=== PATIENT | male | born 1950 | race Caucasian/White ===

== ENCOUNTER 2020-06-01 07:36 | Outpatient (CLI) | payer MEDICARE, SELFPAY ==
--- NOTE | ~2020-06-01 | CT_ITS ---
EXAMINATION: CT abdomen w con DATE: 06/01/2020 08:37 INDICATION: Uveal melanoma. TECHNIQUE: Computed tomography (CT) of the abdomen was performed with 100 mL Omnipaque 350 intravenou s contrast. The dose-length product was 790.40 mGy-cm. COMPARISON: Chest CT 01/11/2016 FINDINGS: The visualized portions of the lung bases demonstrate minimal atelectasis on the right. No pleural effusion. Cardiomegaly is noted. No pericardial effusion. There is a small sliding hiatal her robert. There is a 5.4 cm low-attenuation mass in segment VII of the liver with interrupted peripheral p uddling of contrast, consistent with a hemangioma. There are 8 hypodense lesions in the liver measuri ng up to 10 mm. The liver is not well evaluated on the prior chest CT due to the pulmonary arterial p hase of contrast. There are gallstones in the gallbladder, which is normal in size. Calcifications in the spleen are consistent with old granulomatous disease. The pancreas is normal. There are masses i n the adrenal glands measuring up to 1.6 cm on the left measuring soft tissue attenuation without shawanda nge from 01/11/16, consistent with adenomas. There is a 2.4 cm cyst in right kidney. Left kidney is no rmal. There are changes of right hemicolectomy. There are 2 supraumbilical ventral hernias containing fat. There are no pathologically enlarged lymph nodes. There is no free intraperitoneal fluid. There is a chronic compression fracture of T10. There are bridging endplate osteophytes at multiple levels in the spine, consistent with diffuse idiopathic skeletal hyperostosis (DISH). There is mild thoraco lumbar spondylosis. IMPRESSION: 1. Eight liver masses measuring up to 10 mm. These findings are most likely cysts, but metastatic dis ease cannot be excluded. Abdomen MRI without and with contrast is recommended. Reviewed, dictated and finalized at location A. IMPRESSION: 1. Eight liver masses measuring up to 10 mm. These findings are most likely cys ts, but metastatic disease cannot be excluded. Abdomen MRI without and with con trast is recommended.
[2020-06-01 08:26] LABS: Estimated Glomerular Filt Rate > 60
== END 2020-06-01 07:37 | disposition home or self-care (01) ==
PROVIDERS: PCP Family Medicine; Visit Provider Radiology Radiation Oncology
DX: C69.31 Malignant neoplasm of right choroid (principal); R16.0 Hepatomegaly, not elsewhere classified
CPT/HCPCS: 36415; 74160; Q9967

== ENCOUNTER 2020-06-09 06:37 | Outpatient (CLI) | payer MEDICARE, SELFPAY ==
--- NOTE | ~2020-06-09 | MR_ITS ---
EXAMINATION: MR abdomen wo/w con DATE: 06/09/2020 08:09 INDICATION: Lesion of liver. Malignant melanoma of the eye. TECHNIQUE: Magnetic resonance imaging (MRI) of the abdomen was performed without and with 20 mL Multi manny intravenous contrast. Sequences included coronal T2-weighted SS-FSE, coronal and axial FS 2D-F IESTA, axial STIR FSE, axial T2-weighted SS-FSE, axial T2-weighted FS SS-FSE, axial diffusion-weighte d SE, axial dual-echo T1-weighted FSPGR, and axial and coronal T1-weighted LAVA. Postcontrast axial T 1-weighted LAVA images were obtained in a time course. Postcontrast coronal T1-weighted LAVA images w ere obtained. COMPARISON: CT dated 06/01/2020 FINDINGS: Heart size is normal. No pericardial or pleural effusion. There are several small enhancing gallbladd er polyps the largest 2 measuring up to 6 mm in maximal diameter. Small splenule along the anteroinfe rior margin of the normal spleen. Pancreas and bilateral adrenal glands are normal. T2 hyperintense n onenhancing bilateral renal cysts measuring 2.5 cm on the right and 5 mm on the left. 4.8 x 2.9 cm T2 hyperintense cavernous hemangioma in segment 7 of the liver with peripheral discontig uous puddling of contrast isodense to aorta which fills in on delayed imaging. Slightly posterior and medial from the cavernous hemangiomas a second 8 mm flash filling hemangioma which demonstrates avid arterial enhancement which persists throughout the 5 and 10 minute delayed imaging. There are multip le T2 hyperintense nonenhancing cysts scattered throughout the liver. There are 2 small peripheral we dge-shaped regions of subtle enhancement in the arterial phase which equalizes to the surrounding hep atic parenchyma on the remaining sequences and without evident correlate on any of the precontrast se quences most consistent with transient hepatic intensity difference. Finally there is a 6 mm arterial ly enhancing lesion at the junctions of segments 4A and 4B of the liver which does not appear to cont act the liver capsule but which is also indiscernible on the noncontrast and more delayed postcontras t images is isodense to the surrounding hepatic parenchyma. No other hepatic lesions identified. Spec ifically no lesions demonstrating washout on more delayed postcontrast images. IMPRESSION: 1. Multiple hepatic lesions, 2 of which including the largest 4.9 cm lesion in the right hepatic lobe are consistent with hemangiomas, the majority are consistent with hepatic cysts, 2 with appearance f avoring transient hepatic intensity difference and finally a single 6 mm arterially enhancing lesion at the junction of segments 4A and 4B which remains indeterminate with differential including flash f illing hemangioma, transient hepatic intensity difference or neoplasm either benign or malignant. No evident washout to more specifically suggest malignancy/metastatic disease. Given the small size of t he lesion but also in the setting of known primary malignancy would recommend 3-6 month follow-up con trast-enhanced MRI. Reviewed, dictated and finalized at location A. IMPRESSION: 1. Multiple hepatic lesions, 2 of which including the largest 4.9 cm lesion in the right hepatic lobe are consistent with hemangiomas, the majority are consis tent with hepatic cysts, 2 with appearance favoring transient hepatic intensity difference and finally a single 6 mm arterially enhancing lesion at the juncti on of segments 4A and 4B which remains indeterminate with differential includin g flash filling hemangioma, transient hepatic intensity difference or neoplasm either benign or malignant. No evident washout to more specifically suggest mal ignancy/metastatic disease. Given the small size of the lesion but also in the setting of known primary malignancy would everette
== END 2020-06-09 06:38 | disposition home or self-care (01) ==
LOC: ANHIMG 06:39
PROVIDERS: PCP Family Medicine; Visit Provider Radiology Radiation Oncology
DX: C69.90 Malignant neoplasm of unspecified site of unspecified eye (principal); K76.9 Liver disease, unspecified
CPT/HCPCS: 74183; A9577

== ENCOUNTER 2020-08-24 08:45 | Outpatient (CLI) | payer MEDICARE, SELFPAY ==
--- NOTE | ~2020-08-24 | MR_ITS ---
EXAMINATION: MR abdomen wo/w con DATE: 08/24/2020 10:06 INDICATION: Liver mass. Malignant neoplasm of right choroid. TECHNIQUE: Magnetic resonance imaging (MRI) of the brain and brainstem was performed without and with 20 mL MultiHance intravenous contrast. Sequences included coronal T2-weighted FS FSE, coronal and ax ial FS FIESTA, axial T2-weighted FSE, coronal LAVA-flex, axial STIR FSE, axial DWI, axial dual-echo T 1-weighted FSPGR, and axial LAVA. Postcontrast sequences included coronal LAVA-flex and a time course of axial LAVA. COMPARISON: Abdomen MRI 06/09/2020, CT 06/01/2020, chest CT 01/11/2016 FINDINGS: Left hepatic lobe is small. A 4.8 cm mass in right hepatic lobe demonstrates interrupted pe ripheral puddling of contrast, consistent with a hemangioma. There are cysts in the liver measuring u p to 9 mm. There is a wedge-shaped area of arterial enhancement in right hepatic lobe, consistent wit h transient hepatic intensity difference. There is an 8 mm arterial enhancing mass in segment VIII. T here is a 13 mm arterial enhancing mass in segment VII. There are two 8 mm enhancing lesions in segme nt V. There are polyps in the gallbladder measuring up to 6 mm. The spleen is normal. There is a 12 x 5 mm cystic lesion in the head of the pancreas. There are masses in the adrenal glands measuring up to 16 mm on the left containing microscopic fat, consistent with adenomas. There are cysts in the kid neys measuring up to 2.7 cm on the right. There are no pathologically enlarged lymph nodes. There is no free intraperitoneal fluid. IMPRESSION: 1. Four enhancing liver masses measuring up to 13 mm, stable from 06/09/2020, most likely benign. Edmonson static disease cannot be excluded. Consider abdomen MRI without and with contrast in 6 months. 2. Gallbladder polyps measuring up to 6 mm, most likely benign. Metastatic disease cannot be excluded . Reviewed, dictated and finalized at location A. IMPRESSION: 1. Four enhancing liver masses measuring up to 13 mm, stable from 06/09/2020, mo st likely benign. Metastatic disease cannot be excluded. Consider abdomen MRI w ithout and with contrast in 6 months. 2. Gallbladder polyps measuring up to 6 mm, most likely benign. Metastatic dise ase cannot be excluded.
[2020-08-24 09:28] LABS: Estimated Glomerular Filt Rate > 60
== END 2020-08-24 08:46 | disposition home or self-care (01) ==
LOC: ANHIMG 08:47
PROVIDERS: PCP Family Medicine; Visit Provider Radiology Radiation Oncology
DX: C69.31 Malignant neoplasm of right choroid (principal)
CPT/HCPCS: 74183; A9577

== ENCOUNTER 2021-02-09 08:43 | Outpatient (CLI) | payer MEDICARE, SELFPAY ==
--- NOTE | ~2021-02-09 | MR_ITS ---
EXAMINATION: MR abdomen wo/w con DATE: 02/09/2021 10:07 INDICATION: Liver mass. Melanoma of right choroid. TECHNIQUE: Magnetic resonance imaging (MRI) of the abdomen was performed without and with 20 mL Multi [place] intravenous contrast. Sequences included coronal T2-weighted FS FSE, coronal and axial FS FIEST A, axial T2-weighted FSE, coronal LAVA-flex, axial STIR FSE, axial DWI, axial dual-echo T1-weighted F SPGR, and axial LAVA. Postcontrast sequences included coronal LAVA-flex and a time course of axial LA VA. COMPARISON: Abdomen MRI 08/24/2020, 06/09/20, CT abdomen 06/01/2020 FINDINGS: In the right hepatic lobe, there is a 5.0 cm mass with interrupted peripheral puddling of contrast, c onsistent with a hemangioma. There are cysts in the liver measuring up to 9 mm. There are multiple ar terial enhancing lesions in the liver measuring up to 16 mm, stable from 06/09/2020, likely benign. Th ere are polyps in the gallbladder measuring up to 6 mm, stable from 06/09/20, likely benign. The splee n and pancreas are normal. There are masses in the adrenal glands measuring up to 13 mm on the left c ontaining microscopic fat, consistent with adenomas. There is a 2.7 cm cyst in right kidney. Left kid dean is normal. There are no pathologically enlarged lymph nodes. There is no free intraperitoneal flu id. There are no dilated loops of bowel. IMPRESSION: 1. No specific evidence of metastatic disease. Reviewed, dictated and finalized at location A.
[2021-02-09 09:27] LABS: Estimated Glomerular Filt Rate > 60
== END 2021-02-09 08:44 | disposition home or self-care (01) ==
PROVIDERS: PCP Family Medicine; Visit Provider Radiology Radiation Oncology
DX: C69.31 Malignant neoplasm of right choroid (principal); R93.2 Abnormal findings on diagnostic imaging of liver and biliary tract
CPT/HCPCS: 74183; A9577

== ENCOUNTER → 2021-10-02 15:00 | Outpatient (CLI) | payer MEDICARE, SELFPAY ==
--- NOTE | ~2021-10-02 | MR_ITS ---
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 The heart size is normal. There is a stable 5 cm hemangioma of th e right hepatic lobe. Cysts of the liver measure up to 9 mm. There are multiple stable arterially enh ancing lesions of the liver, likely benign. No new enhancing liver mass is identified. The spleen and pancreas are normal. Stable polyps of the gallbladder measure up to 6 mm. Stable left adrenal masses measuring up to 13 mm and are consistent with adenomas. There are no pathologically enlarged abdomin al lymph nodes. Cysts of the kidneys measure up to 2.9 cm on the right. There are no dilated loops of bowel. IMPRESSION: 1. No evidence of metastatic disease. Reviewed, dictated and finalized at location B. PING AND RECEIVING COORDINATOR
--- NOTE | ~2021-10-02 | XR_ITS ---
EXAMINATION: XR chest 2V 10/02/2021 16:25 INDICATION: Ocular melanoma. PROCEDURE: 2 view chest COMPARISON: Comparison to multiple prior studies sequentially, with oldest reviewed study dated 07/25. FINDINGS: The lungs are clear. The cardiomediastinal silhouette is within normal limits. There are no pleural effusions. There is no pneumothorax suspected. There is mild wedge compression deformity of the lower thoracic vertebra. IMPRESSION: 1: NO ACUTE CARDIOPULMONARY DISEASE. Reviewed, dictated and finalized at location A. BURSEMENT DIRECTOR
[2021-10-02 15:50] LABS: Estimated Glomerular Filt Rate > 60
== END ==
PROVIDERS: PCP Family Medicine
DX: R93.2 Abnormal findings on diagnostic imaging of liver and biliary tract (principal)
CPT/HCPCS: 71046; 74183; A9577

== ENCOUNTER 2022-01-04 00:07 | Day surgery (SDC) | payer MEDICARE, SELFPAY ==
[2021-12-26 14:43] VITALS: BMI 34.4
[2022-01-04 09:02] VITALS: BP 166/73; PULSE 77; RESP 18; TEMP 36.3; O2SAT 95
[2022-01-04] MEDS: LACTATED RINGERS 1,000 ML 150 ML IV CONT (09:13)
--- NOTE | 2022-01-04 09:41 | WPDGICN ---
Assessment and Plan Assessment and plan (1) Family history of colon cancer in mother: Code(s): Z80.0 - Family history of malignant neoplasm of digestive organs Status: Acute Assessment and Plan: Patient's mother had colon cancer this reason along with personal history of colon polyps and noted. Plan is for follow-up colonoscopy at 5 year intervals. (2) History of colon polyps: Code(s): Z86.010 - Personal history of colonic polyps Status: Acute Assessment and Plan: Patient had a large polyp requiring surgical resection in 2009. Plan is for surveillance colonoscopy at this time. GI Consult Note Consult date/time: 01/04/22 09:41 HPI: Jaciel Silvestre is a 71 year old male Presents for screening colonoscopy. Patient's current weight appetite and bowel movements are normal. He denies abdominal pain. He has had no bleeding. Family history is significant as mother had colon cancer. Patient himself had a very large colon polyp requiring surgical resection in 2009. Most recent colonoscopy 5 years ago was unremarkable. He presents today for neoplasia screening. Review of Systems Review of Systems: All systems reviewed & are unremarkable except as noted in HPI and below PMFSH Past Medical History Medical History History of chicken pox History of measles Prediabetes Family History Family History Mother , age 52 Carcinoma of colon Sibling Family history of diabetes mellitus in first degree relative Father , age 82 Family history of emphysema Other Depression Diabetes mellitus Family history of Alzheimer's disease Family history of cardiovascular disease Family history of elevated blood lipids Hypertension Social History Social History Smoking status: Former smoker Smoking end date: 11/25/73 Alcohol intake: never Substance use: never Substance use type: does not use Living arrangements: with family Gender identity (if verbalized by the patient): Male Spiritual care concerns: No Meds Home Medications and Allergies Home Medications Medication Instructions Recorded Confirmed Type ascorbate calcium (vitamin C) 500 500 mg PO DAILY 01/25/21 12/26/21 History mg tablet cholecalciferol (vitamin D3) 50 50 mcg PO DAILY 01/25/21 12/26/21 History mcg (2,000 unit) capsule zynkrsuldwsf-dqt-fvfxr acid-vit 1 tablet PO DAILY 01/25/21 12/26/21 History K-lycop 400 mcg-20 mcg-370 mcg tablet psyllium husk 3.4 gram/5.4 gram 1 tsp PO DAILY g 01/25/21 12/26/21 History oral powder simvastatin 10 mg tablet 10 mg PO DAILY #90 tablet 05/15/21 12/26/21 Rx hydrochlorothiazide 25 mg tablet 25 mg PO DAILY #90 tablet 06/07/21 12/26/21 Rx lisinopril 40 mg tablet 40 mg PO DAILY #90 tablet 06/07/21 12/26/21 Rx bupropion HCl 300 mg 24 hr tablet, 300 mg PO QAM #90 tablet 11/20/21 12/26/21 Rx extended release fluoxetine 20 mg capsule 20 mg PO DAILY #90 cap 11/20/21 12/26/21 Rx metoprolol succinate 25 mg 25 mg PO DAILY #90 tablet 12/05/21 12/26/21 Rx tablet,extended release 24 hr trazodone 50 mg PO HS 12/26/21 12/26/21 History Allergies Allergy/AdvReac Type Severity Reaction Status Date / Time tamsulosin Allergy Unknown Lightheaded Verified 01/04/22 09:00 ness Tetanus Vaccines and Toxoid Allergy Unknown Skin Verified 01/04/22 09:00 Reaction Vital Signs Vital Signs - 24 hr 01/04/22 09:02 Temperature 97.3 F L Pulse Rate 77 Respiratory Rate 18 Blood Pressure 166/73 H Pulse Oximetry 95 Exam Narrative: Physical exam reveals patient be alert. Vital signs stable. HEENT exam is unremarkable. Patient is anicteric. Lungs are clear to auscultation and percussion. Heart is without murmur or extra sounds. Abdominal exam bowel sounds are pr
--- NOTE | 2022-01-04 09:43 | WPDANESEPPF ---
Anes - Initial Pre Proc Eval Procedure: Operation Date: 01/04/22 10:15 Proposed Procedures p Screening Colonoscopy - Mike Yanes MD Date/Time: 01/04/22 09:43 Surgeon: Mike Yanes MD Pre Op Diagnosis: hx of colon polyps, fam hx of colon ca Patient Data Age: 71 Gender: M Height: 1.78 m Weight: 109 kg Last Vital Signs Temp 97.3 F L 01/04/22 09:02 Pulse 77 01/04/22 09:02 Resp 18 01/04/22 09:02 BP 166/73 H 01/04/22 09:02 Pulse Ox 95 01/04/22 09:02 Allergies Allergy/AdvReac Type Severity Reaction Status Date / Time tamsulosin Allergy Unknown Lightheaded Verified 01/04/22 09:00 ness Tetanus Vaccines and Toxoid Allergy Unknown Skin Verified 01/04/22 09:00 Reaction Home Medications Medication Instructions Recorded Confirmed Type ascorbate calcium (vitamin C) 500 500 mg PO DAILY 01/25/21 12/26/21 History mg tablet cholecalciferol (vitamin D3) 50 50 mcg PO DAILY 01/25/21 12/26/21 History mcg (2,000 unit) capsule voatnkrgiyra-mxy-enaui acid-vit 1 tablet PO DAILY 01/25/21 12/26/21 History K-lycop 400 mcg-20 mcg-370 mcg tablet psyllium husk 3.4 gram/5.4 gram 1 tsp PO DAILY g 01/25/21 12/26/21 History oral powder simvastatin 10 mg tablet 10 mg PO DAILY #90 tablet 05/15/21 12/26/21 Rx hydrochlorothiazide 25 mg tablet 25 mg PO DAILY #90 tablet 06/07/21 12/26/21 Rx lisinopril 40 mg tablet 40 mg PO DAILY #90 tablet 06/07/21 12/26/21 Rx bupropion HCl 300 mg 24 hr tablet, 300 mg PO QAM #90 tablet 11/20/21 12/26/21 Rx extended release fluoxetine 20 mg capsule 20 mg PO DAILY #90 cap 11/20/21 12/26/21 Rx metoprolol succinate 25 mg 25 mg PO DAILY #90 tablet 12/05/21 12/26/21 Rx tablet,extended release 24 hr trazodone 50 mg PO HS 12/26/21 12/26/21 History Patient hx anesthesia problems: none Family hx anesthesia problems: none Results Review: All pre-operative results and documents have been reviewed as part of the pre-operative evaluation. [facility] Past Medical History Medical History History of chicken pox History of measles Prediabetes Family History Family History Mother , age 52 Carcinoma of colon Sibling Family history of diabetes mellitus in first degree relative Father , age 82 Family history of emphysema Other Depression Diabetes mellitus Family history of Alzheimer's disease Family history of cardiovascular disease Family history of elevated blood lipids Hypertension Social History Social History Smoking status: Former smoker Smoking end date: 11/25/73 Alcohol intake: never Substance use: never Substance use type: does not use Living arrangements: with family Gender identity (if verbalized by the patient): Male Spiritual care concerns: No Anes - Eval Final PreProcedure Day of Procedure 01/04/22 09:43 Patient weight: obese Heart: regular rate and rhythm Lungs: clear to auscultation Airway: Mallampati scale class II Neurological: alert and oriented Last oral intake: >/= 8 hours ASA classification: III Emergent: no Anesthetic plan: proceed Anesthesia type and monitoring: general GIVS and standard monitoring Results Review: All pre-operative results and documents have been reviewed as part of the pre-operative evaluation. Informed Consent: The patient's anesthetic plan and its attendant risks and benefits were discussed with the patient/family/POA. Questions were solicited and answers provided to the satisfaction of the patient/family/POA.
[2022-01-04 10:10] VITALS: BP 97/49; PULSE 58; RESP 16; O2SAT 95
[2022-01-04 10:20] VITALS: BP 129/68; PULSE 67; RESP 18; O2SAT 96
[2022-01-04 10:29] VITALS: BP 130/66; PULSE 61; RESP 16; O2SAT 97
== END 2022-01-04 10:47 | disposition home or self-care (01) ==
PROVIDERS: PCP Family Medicine; Visit Provider Internal Medicine Gastroenterology
PROC: 0DJD8ZZ Inspection of Lower Intestinal Tract, Via Natural or Artificial Opening Endoscopic (ICD-10-PCS; CPT 45378; principal; 2022-01-04 10:15)
DX: Z12.11 Encounter for screening for malignant neoplasm of colon (principal); Z80.0 Family history of malignant neoplasm of digestive organs; D12.2 Benign neoplasm of ascending colon; D12.0 Benign neoplasm of cecum; D12.4 Benign neoplasm of descending colon; K64.8 Other hemorrhoids; R73.03 Prediabetes; Z87.891 Personal history of nicotine dependence; E66.9 Obesity, unspecified; Z68.34 Body mass index [BMI] 34.0-34.9, adult
CPT/HCPCS: 45385; 88305; J2704; J7120

== ENCOUNTER 2022-03-06 14:39 | Emergency (ER) | payer MEDICARE, SELFPAY ==
--- NOTE | 2022-03-06 14:50 | ED.CPR ---
HPI - CPR General Chief Complaint: Cardiac Arrest/CPR Stated Complaint: cardiac arrest Time Seen by Provider: 03/06/22 14:49 Source: family and EMS Mode of arrival: EMS Limitations: clinical condition History of Present Illness HPI narrative: Pt arrived in full arest per EMS intubated with CPR in progress. Per patient had no complaints earlier in day, she left to run some errands, when she came back about 90 minutes later she found him sitting in chair in front of TV unresponsive. EMS was called. Pt in v fib, shocked once into PEA, intubated, I/O and IV access obtained, pt given seven rounds of epi, did have brief run of v fib again and then shocked to PEA where he remained. MD complaint: found unresponsive Onset (ago): minute(s) (60-90) Timing confirmed by: spouse Place: home Bystander CPR performed: No Number of shocks delivered: 2 Initial findings in the field: unresponsive and VTACH/VFIB ROSC in the field: No Associated injuries: No Known history of: other (htn) Treatments prior to arrival: intubation, chest compressions, defibrillated shocks # (2) and epinephrine mgs # (7) Related Data Home Medications Medication Instructions Recorded Confirmed ascorbate calcium (vitamin C) 500 500 mg PO DAILY 01/25/21 12/26/21 mg tablet cholecalciferol (vitamin D3) 50 50 mcg PO DAILY 01/25/21 12/26/21 mcg (2,000 unit) capsule snzeqlcjpqwt-iti-kbhov acid-vit 1 tablet PO DAILY 01/25/21 12/26/21 K-lycop 400 mcg-20 mcg-370 mcg tablet psyllium husk 3.4 gram/5.4 gram 1 tsp PO DAILY g 01/25/21 12/26/21 oral powder trazodone 50 mg PO HS 12/26/21 12/26/21 Allergies Allergy/AdvReac Type Severity Reaction Status Date / Time tamsulosin Allergy Unknown Lightheaded Verified 01/04/22 09:00 ness Tetanus Vaccines and Toxoid Allergy Unknown Skin Verified 01/04/22 09:00 Reaction Review of Systems Review of Systems: ROS unobtainable: Yes unobtainable due to medical condition PMFSH Past Medical History Medical History History of chicken pox History of measles Prediabetes Family History Family History Mother , age 52 Carcinoma of colon Sibling Family history of diabetes mellitus in first degree relative Father , age 82 Family history of emphysema Other Depression Diabetes mellitus Family history of Alzheimer's disease Family history of cardiovascular disease Family history of elevated blood lipids Hypertension Social History Social History Smoking status: Former smoker Smoking end date: 11/25/73 Alcohol intake: never Substance use: never Substance use type: does not use Gender identity (if verbalized by the patient): Male Spiritual care concerns: No Exam Narrative: Pt arrived in PEA after prolonged downtime and scene time. Automatic compression device in place. no pulse without CPR Eyes: Other: pupils fixed and dilated Resp: Other: breath sounds only in right side, tube pulled back to 26 cm then equal BS with baged respirations Cardio: Other: no pulse or HR without CPR Skin: Other: pale cyanotic Extrem: General: no pedal edema Course Course Emergency Course: Pt arrived in PEA, tube pulled back even though capnography good to get equal BS, given epinephrine per ACLS protocol. Talked to family and informed of grave situation, family wished to stop CPR. Pt given 3 epi in total before code called. Code called at 1445. Family wishes to wait on commutator inspector before viewing patient. Vital Signs Vital signs: Vital Signs Pulse Rate 0 L 03/06/22 15:16 Respiratory Rate 0 L 03/06/22 15:16 Blood Pressure 0/0 L 03/06/22 15:16 Pulse Oximetry 0 L 03/06/22 15:16 Pulse Rate 0 L 03/06/22 15:16 Respiratory Rate 0 L 03/06/22 15:16 Blood Pressure 0/0 L 03/06/22 15:16 Puls
[2022-03-06 15:16] VITALS: BP 0/0; PULSE 0; RESP 0; O2SAT 0
--- NOTE | 2022-03-06 15:21 | PC.NURSE ---
patient unresponsive upon arrival. EMS states that called after being away from home approx 1h 30mins, returned home and found patient unsresponsive. Upon arrival patient was noted to be in VFIB, he was initially shocked and intubated. Per EMS he was given 7 rounds of epi with no change in condition and continuous compressions per PADMAJA. once patient was in ED, Dr. Barger assessed ETT placement, it was pulled back to 26 at lip. patient received 3 doses of epi with no change in condition. Dr Barger ended the event and time of was noted at 1445. Dr. Barger spoke with family
--- NOTE | 2022-03-06 15:45 | PC.NURSE ---
family in room with patient at this time
--- NOTE | 2022-03-06 16:50 | PC.NURSE ---
patient taken to [facility] with race and sports book writer, tech and security. belongings with patient
[2022-03-06 17:48] LABS: Glucose Point of Care 192 mg/dl (65-105)
== END 2022-03-06 16:50 | disposition expired ==
PROVIDERS: Emergency Provider Emergency Medicine; PCP Family Medicine
DX: I46.9 Cardiac arrest, cause unspecified (principal); R73.03 Prediabetes; Z87.891 Personal history of nicotine dependence
CPT/HCPCS: 82948; 92950; 99285; J0171; J7030